=== PATIENT | male | born 1970 | race Two or more races ===

== ENCOUNTER 2018-08-07 21:26 | Inpatient (IN) | payer OTHER | END 2018-08-09 17:57 | disposition other institution (70) | LOC: OVERFLOW 08-08 02:50 → ER 21:26 → WEST WING 08-08 06:34 | DX: T38.3X5A Adverse effect of insulin and oral hypoglycemic [antidiabetic] drugs, initial encounter (principal); G93.41 Metabolic encephalopathy; E11.649 Type 2 diabetes mellitus with hypoglycemia without coma; R56.9 Unspecified convulsions; G40.909 Epilepsy, unspecified, not intractable, without status epilepticus; I10 Essential (primary) hypertension ==